=== PATIENT | female | born 1975 | race American Indian/Alaskan Native ===

== ENCOUNTER 2021-06-06 20:31 | Emergency (ER) | payer MEDICAID, OTHER ==
[2021-06-06 20:34] VITALS: BP 128/81; PULSE 122
[2021-06-06 21:03] LABS: CHLORIDE,CL 103 mEq/L (98-106); SODIUM,NA 133 mEq/L (136-145)
[2021-06-06] MEDS ORDERED: Ibuprofen 200 MG Tab PO ONE (21:04)
--- NOTE | 2021-06-06 21:25 | EDM.PDOC ---
ED HPI GENERAL MEDICAL PROBLEM - General Chief Complaint: Fever Stated Complaint: fever, joint pain Time Seen by Provider: 06/06/21 21:10 Source of Information: Reports: Patient - History of Present Illness INITIAL COMMENTS - FREE TEXT/NARRATIVE: This is a 46 year old female that presents with body aches and trouble breathing. States that she has been exposed to a household member with influenza. Has been taking Tylenol and ibuprofen for fever and body aches with minimal relief. Associated weakness and fatigue. Denies nausea or vomiting. Bilateral Hand Pain Score (Numeric/FACES): 8 - Related Data Allergies Allergy/AdvReac Type Severity Reaction Status Date / Time No Known Allergies Allergy Verified 02/02/17 11:47 Home Meds: Home Meds metFORMIN [metFORMIN XR] 500 mg PO DAILY 11/12/13 [History] Mirtazapine [Remeron] 15 mg PO BEDTIME 08/24/14 [History] Gabapentin [Neurontin] 600 mg PO TID 04/04/16 [History] buPROPion HCL [Wellbutrin Sr] 300 mg PO DAILY 02/02/17 [History] Past Medical History - Past Health History Medical/Surgical History: Denies Medical/Surgical History HEENT History: Reports: None Cardiovascular History: Reports: None Respiratory History: Reports: None Gastrointestinal History: Reports: None Genitourinary History: Reports: None [employer] History: Reports: Musculoskeletal History: Reports: Back Pain, Chronic, Fracture Neurological History: Reports: None Psychiatric History: Reports: Addiction, Anxiety, Depression Endocrine/Metabolic History: Reports: Diabetes, Type II Hematologic History: Reports: None Immunologic History: Reports: None Dermatologic History: Reports: None - Infectious Disease History Infectious Disease History: Reports: Hepatitis C - Past Surgical History GI Surgical History: Reports: Cholecystectomy Female Surgical History: Reports: Hysterectomy Social & Family History - Family History Family Medical History: No Pertinent Family History - Tobacco Use Tobacco Use Status *Q: Never Tobacco User - Caffeine Use Caffeine Use: Reports: None - Recreational Drug Use Recreational Drug Use: No - Living Situation & Occupation Living situation: Reports: with Family Occupation: Disabled ED ROS GENERAL - Review of Systems Review Of Systems: See Below Constitutional: Reports: Fever, Chills HEENT: Reports: No Symptoms Respiratory: Reports: Cough Cardiovascular: Reports: Dyspnea on Exertion. Denies: Chest Pain Endocrine: Reports: Fatigue GI/Abdominal: Denies: Abdominal Pain, Nausea, Vomiting : Reports: No Symptoms. Denies: Discharge, Dysuria Musculoskeletal: Reports: No Symptoms Skin: Reports: No Symptoms Neurological: Reports: Other (lightheadedness) Psychiatric: Reports: No Symptoms Hematologic/Lymphatic: Reports: No Symptoms Immunologic: Reports: No Symptoms ED EXAM, GENERAL - Physical Exam Exam: See Below Exam Limited By: No Limitations General Appearance: Alert, Mild Distress Ears: Normal External Exam, Hearing Grossly Normal Nose: Normal Inspection, Normal Mucosa Throat/Mouth: Normal Inspection, Normal Oropharynx, Normal Voice, No Airway Compromise Head: Atraumatic Neck: Normal Inspection, Supple, Non-Tender Respiratory/Chest: No Respiratory Distress, Lungs Clear Cardiovascular: Regular Rate, Rhythm, No Gallop, No Murmur, No Rub GI/Abdominal: Normal Bowel Sounds, Soft, Non-Tender (Female) Exam: Deferred Rectal (Female) Exam: Deferred Neurological: Alert, Oriented, Normal Cognition Psychiatric: Normal Affect, Normal Mood Skin Exam: Warm, Dry, Intact Course - Vital Signs Last Recorded V/S: Last Vital Signs Temp 100.8 F H 06/06/21 21:06 Pulse 122 H 06/06/21 20:31 Resp 18 06/06/21 20:31 BP 128/81 06/06/21 20:31 Pulse Ox 97 06/06/21 20:31 - Orders/Labs/Meds Labs: Laboratory Tests 06/06/21 06/06/21 06/06/21 Range/Units 20:37 20:37 21:08 WBC 5.3 (4.0-11.0) 10^3/uL RBC 4.83 (4.00-5.50) x10^6/uL Hgb 12.9 (12.0-16.0) g/dL Hct 40.3 (37.0-47.0) % MCV 83.4 (83.0-97.0) fL MCH 26.7 L (27.0-32.0) pg MCHC 32.0 (32.0-36.0) g/dL RDW Coeff of Thomas 20.3 H (11.0-15.0) % Plt Count 170 (150-400) 10^3/uL Immature Gran % (Auto) 0.4 (0.0-4.9) % Neut % (Auto) 79.5 H (41-71) % Lymph % (Auto) 6.4 L (24-44) % Putnam % (Auto) 10.8 H (0-10) % Eos % (Auto) 2.3 (0-6) % Baso % (Auto) 0.6 (0-1) % Neut # (Auto) 4.22 (1.80-8.00) x10^3/uL Lymph # (Auto) 0.34 L (0.60-5.00) 10^3/uL Putnam # (Auto) 0.57 (0.00-1.50) 10^3/uL Eos # (Auto) 0.12 (0.00-1.50) 10^3/uL Baso # (Auto) 0.03 (0.00-0.50) 10^3/uL Immature Gran # (Auto) 0.02 (0.00-0.49) 10^3/uL Sodium 133 L (136-145) mEq/L Potassium 3.6 (3.5-5.0) mEq/L Chloride 103 (98-106) mEq/L Carbon Dioxide 20 L (21-32) mmol/L BUN 7 (7-18) mg/dL Creatinine 0.9 (0.6-1.0) mg/dL Est Cr Clr Drug Dosing 68.88 mL/min Estimated GFR (MDRD) > 60 (>=60) mL/min Glucose 140 H (75-99) mg/dL Calcium 8.5 (8.4-10.1) mg/dL SARS CoV-2 RNA Rapid SHREYA Negative (NEGATIVE) Meds: Medications Discontinued Medications Generic Name Dose Route Start Last Admin Trade Name Freq PRN Reason Stop Dose Admin Ibuprofen 600 mg 06/06/21 21:04 06/06/21 21:06 Ibuprofen 200 Mg Tab PO 06/06/21 21:05 600 mg ONETIME ONE Administration - Re-Assessments/Exams Free Text/Narrative Re-Assessment/Exam: This is a 46 year old female that presents to the ED with flu-like symptoms and influenza exposure. Obtained COVID and influenza labs. Positive for Influenza A. COVID negative. Ibuprofen administered in the ED for fever and body aches. Plan to discharge patient home. Discussed risks of and benefits of Tamiflu that it may have adverse affects and stomach upset and has been proven to decrease duration of symptoms. Patient expresses that she wishes to try Tamiflu. Prescription placed for Tamiflu BID po x 5 days. Encouraged to drink fluids to stay hydrated. May call or return if symptoms worsen or if she has questions. Departure - Departure Time of Disposition: 21:18 Disposition: Home, Self-Care 01 Condition: Fair Clinical Impression: Influenza - Discharge Information *PRESCRIPTION DRUG MONITORING PROGRAM REVIEWED*: Not Applicable *COPY OF PRESCRIPTION DRUG MONITORING REPORT IN PATIENT JENN: Not Applicable Instructions: Influenza, Adult Care Plan Goals: 1. Take Tamiflu 75 mg by mouth two times per day for five days. 2. Drink plenty of fluids to stay hydrated. 3. Alternate Tylenol and ibuprofen for fever and body aches. 4. Call or return if symptoms worsen or if you have any questions. Sepsis Event Note (ED) - Focused Exam Vital Signs: Vital Signs Temp Temp Pulse Resp BP Pulse Ox 06/06/21 21:06 100.8 F H 06/06/21 20:31 100.8 F H 122 H 18 128/81 97
[2021-06-06] MEDS ORDERED: Oseltamivir 75 MG Cap PO SCH (21:30)
[2021-06-06] MEDS ORDERED: Oseltamivir 75 MG Cap ONE (22:20)
== END 2021-06-06 22:15 | disposition home or self-care (01) ==
LOC: CC.ED 20:31
DX: J11.1 Influenza due to unidentified influenza virus with other respiratory manifestations (principal); E11.9 Type 2 diabetes mellitus without complications; Z20.822 Contact with and (suspected) exposure to COVID-19; Z79.84 Long term (current) use of oral hypoglycemic drugs
CPT/HCPCS: 36415; 80048; 85025; 87635; 87804; 99283; A9270; U0002

== ENCOUNTER 2023-08-09 18:18 | Emergency (ER) | payer MEDICAID, OTHER ==
[2023-08-09 18:35] VITALS: BP 128/85; PULSE 102
[2023-08-09] MEDS: Acetaminophen 500 MG Tab PO ONE (19:00)
[2023-08-09] MEDS: Ibuprofen 200 MG Tab PO ONE (19:00)
== END 2023-08-09 20:13 | disposition home or self-care (01) ==
LOC: CC.ED 18:18
DX: B34.9 Viral infection, unspecified (principal); I10 Essential (primary) hypertension; E11.9 Type 2 diabetes mellitus without complications; E03.9 Hypothyroidism, unspecified; Z88.5 Allergy status to narcotic agent; Z88.8 Allergy status to other drugs, medicaments and biological substances; Z79.899 Other long term (current) drug therapy
CPT/HCPCS: 87804; 87807; 99283; A9270-GY; U0002